=== PATIENT | female | born 1925 | race Caucasian/White ===

== ENCOUNTER 2016-06-28 20:25 | Inpatient (IN) | payer MEDICARE, OTHER ==
[~2016-06-28] VITALS: Ht 170.2 cm; Wt 93.0 kg
[~2016-06-28 20:25] MED LIST: ELIQUIS2.5 MG PO
[2016-06-28 22:37] LABS: HEMOGLOBIN 15.7 gm/dl (12.3-15.3); RED BLOOD COUNT 5.17 M/UL (4.00-5.10); WHITE BLOOD COUNT 8.3 K/UL (4.5-11.0)
[2016-06-29] MEDS ORDERED: DEMADEX 5 MG TAB5 MG PO (09:53)
[2016-06-29] MEDS ORDERED: COZAAR 25MG TAB25 MG PO (09:55)
[2016-06-29] MEDS ORDERED: FLONASE ALLER15.8 ML (09:55)
[2016-06-29] MEDS ORDERED: FENOFIBRATE160 MG PO (09:55)
[2016-06-29] MEDS ORDERED: DILTIAZEM 24HR180 M1 PO (09:56)
[2016-06-29] MEDS ORDERED: KLOR-CON 88 MEQ PO (09:56)
[2016-06-29] MEDS ORDERED: LOPRESSOR100 MG PO (09:57)
[2016-06-29] MEDS ORDERED: BENICAR5 MG PO (09:57)
[2016-06-29] MEDS ORDERED: MULTIVITAMINS1 EAC1 PO (09:58)
[2016-06-29] MEDS ORDERED: AZITHROMYCIN250 MG PO (13:49)
[2016-06-29] MEDS ORDERED: ROBAFEN-DM SYR118 ML PO (13:49)
[2016-06-29] MEDS ORDERED: PRESERVISION L1 EACH PO (13:51)
[2016-06-30 04:54] LABS: HEMOGLOBIN 15.3 gm/dl (12.3-15.3); RED BLOOD COUNT 5.09 M/UL (4.00-5.10); WHITE BLOOD COUNT 9.5 K/UL (4.5-11.0)
[2016-07-02 06:20] LABS: HEMOGLOBIN 15.2 gm/dl (12.3-15.3); RED BLOOD COUNT 5.09 M/UL (4.00-5.10); WHITE BLOOD COUNT 5.9 K/UL (4.5-11.0)
[2016-07-04 06:04] LABS: HEMOGLOBIN 15.9 gm/dl (12.3-15.3); RED BLOOD COUNT 5.35 M/UL (4.00-5.10)
[2016-07-04 06:10] LABS: WHITE BLOOD COUNT 8.4 K/UL (4.5-11.0)
== END 2016-07-06 15:30 | disposition other institution (70) | DRG 291 ==
LOC: ER1 20:25 → ZEROF 06-29 06:00 → MED SURG 4 06-29 06:00
PROVIDERS: Emergency Medicine; Legal Medicine; ADMIT Internal Medicine
DX: I50.33 Acute on chronic diastolic (congestive) heart failure (principal); J96.01 Acute respiratory failure with hypoxia; F03.90 Unspecified dementia, unspecified severity, without behavioral disturbance, psychotic disturbance, mood disturbance, and anxiety; I48.2 Chronic atrial fibrillation; I35.0 Nonrheumatic aortic (valve) stenosis; I25.10 Atherosclerotic heart disease of native coronary artery without angina pectoris; I27.2 Other secondary pulmonary hypertension; E78.5 Hyperlipidemia, unspecified; J45.909 Unspecified asthma, uncomplicated; R73.9 Hyperglycemia, unspecified; T38.0X5A Adverse effect of glucocorticoids and synthetic analogues, initial encounter
CPT/HCPCS: ECHO; 36415; 71010; 71020; 80048; 80053; 81001; 82962; 83036; 83605; 83690; 83735; 83880; 84484; 85025; 85027; 85610; 85730; 87040; 87086; 93005; 93306; 94640; 94664; 96365; 96375; 97116; 97530; 97535; 99285; J0456; J0696; J1940; J2930; J7030; J7050; J7509